=== PATIENT | female | born 1970 | race Caucasian/White ===

== ENCOUNTER 2017-01-04 18:56 | Emergency (ER) | payer BC ==
[~2017-01-04] VITALS: Ht 160 cm; Wt 96.2 kg
[2017-01-04 19:04] VITALS: BP 147/83; PULSE 88; TEMP 36.9; O2SAT 97; Ht 160 cm; Wt 96.2 kg
[2017-01-04] MEDS ORDERED: DOXY100C2 PO (19:56)
[2017-01-04] MEDS ORDERED: DOXYCYCLINE HYCLATE 100 MG CAP PO ONE (20:00)
[2017-01-04] MEDS ORDERED: LORATADINE 10 MG TAB PO ONE (20:00)
[2017-01-04] MEDS ORDERED: VERA240T20 PO (20:18)
[2017-01-04] MEDS ORDERED: SIMV10TA2 PO (20:18)
[2017-01-04] MEDS ORDERED: IBUP-1428 PO (20:18)
[2017-01-04] MEDS ORDERED: SERT25TA PO (20:18)
--- NOTE | 2017-01-05 01:11 | EMERGENCY ROOM VISIT NOTE ---
History Report prepared by Jose: Jaelyn Camara Under the Supervision of: Dr. Michael Larson M.D. First contact with patient: 19:37 Chief Complaint: RASH Stated Complaint: HIVES History of Present Illness The patient is a 46 year old female who presents to the Emergency Room with complaints of a persistent rash which started 3 days ago. The patient has red spots on her right upper thigh which are itchy and slightly painful. She is also having itchiness on her face. She went to the walk in clinic yesterday and today. She was sent to the ED because her symptoms were not improving and she had a fever today. She took her temperature at noon and found that it was 101 degrees. She took some ibuprofen at that time. She tried taking Benadryl several days ago to no significant relief. She denies any tongue swelling, SOB, body aches, joint pain, headache, chest pain, coughing, or urinary symptoms. She denies any latex glove use or chemical exposures. She notes that she has started a new job which requires her to wear a uniform. She thought that she might be reacting to the detergent that they use. She denies any history of hypertension or other medical problems. She denies any environmental allergies. She denies any tick bites. Source of History: patient Onset: 3 days ago Position: other (right upper thigh) Quality: other (rash) Timing: other (persistent) Associated Symptoms: + fevers, No headache, No cough, No chest pain, No SOB , No urinary symptoms Note: Pt report some pain and itchiness. Pt denies tongue swelling, body aches, joint pain. Review of Systems See HPI for pertinent positives & negatives. A total of 10 systems reviewed and were otherwise negative. Past Medical & Surgical Medical Problems: (1) No chronic problems Family History No pertinent family history stated. Social History Smoking Status: Never Smoker Occupation Status: employed Current/Historical Medications Scheduled Doxycycline Hyclate (Vibramycin), 100 MG PO BID Sertraline (Zoloft), 75 MG PO DAILY Simvastatin (Zocor), 10 MG PO QPM Verapamil Sust Rel (Calan Sr Ext Rel), 240 MG PO DAILY Scheduled PRN Ibuprofen (Motrin), 800 MG PO for Pain Allergies Coded Allergies: Ciprofloxacin (Unverified Allergy, Severe, HIVES/SOB, 01/04/17) Sulfa Antibiotics (Unverified Allergy, Severe, HIVES, 8/16/17) Acetaminophen (Unverified Adverse Reaction, Severe, ITCHING, 01/04/17) Hydrocodone (Unverified Adverse Reaction, Severe, ITCHING, 01/04/17) Physical Exam Vital Signs Date Time Temp Pulse Resp B/P (MAP) Pulse Ox O2 Delivery O2 Flow Rate FiO2 01/04/17 19:04 36.9 88 18 147/83 97 Room Air Physical Exam Constitutional: Vital signs reviewed. Eyes: Pupils are equal round reactive to light. Conjunctiva are noninjected. ENT: Pharynx is clear without erythema or exudate. Mucous membranes are moist. Neck supple without meningeal signs. No angioedema. Respiratory: Clear to auscultation bilaterally. Breath sounds are equal bilaterally. No wheezing or stridor. No rales. Cardiovascular: Regular rate and rhythm. No rubs or gallops. GI: Soft, nondistended and nontender. Bowel sounds are present. Musculoskeletal: No peripheral edema. No lower extremity tenderness. No hip tenderness with full ROM of the joint. Integumentary: No cyanosis. No urticaria. Erythematous patch to the right upper thigh anteriorly, slightly increased warmth, no petechiae or purpura, no vesicles or bullae, no central clearing. Neurological: The patient is awake and alert. No focal deficits. Psychiatric: Normal affect. Medical Decision & Procedures Medications Administered Medications (Trade) Dose Ordered Sig/Lindsey Route Start Time Stop Time Status Last Admin Dose Admin Doxycycline Hyclate (Vibramycin Cap) 100 mg ONE ONCE PO 01/04/17 20:00 01/04/17 20:01 DC 01/04/17 20:12 100 MG Loratadine (Claritin Tab) 10 mg NOW ONCE PO 01/04/17 20:00 01/04/17 20:01 DC 01/04/17 20:12 10 MG ED Course 1940: The patient was evaluated in room B4B. A complete history and physical exam was performed. 1999: Loratadine 10 mg PO, Doxycycline Hyclate 100 mg PO. 2009: Upon reevaluation, the patient is resting comfortably. I discussed tonight 's findings with her. She verbalized agreement of the treatment plan. She was discharged home. Medical Decision This is a 46-year-old female presents with a rash and fever. Differential diagnosis includes urticaria, cellulitis, arthritis, Lyme disease. I did perform a limited focused review of portions of the patient's old chart on the electronic medical record. The patient has had no prior visits. I did evaluate the patient as noted above. The patient is presenting with a rash for the past several days. Today she developed a fever. She was placed on prednisone yesterday by the walk-in clinic at [facility]. She says she has itching over the rash as well as over her face. She does not have any urticaria. She is afebrile here but she took ibuprofen prior to arrival. She denies any cold or cough symptoms. She has no headache. She denies any symptoms consistent with Lyme disease. Her rash is not consistent with erythema migrans. She does appear to have a early cellulitis to the right leg. It is unclear what the urticaria is from. I did treat her with loratadine and doxycycline here and she has multiple antibiotic allergies. She was advised follow closely with her doctor. She was discharged with a ten-day prescription for doxycycline. Medication Reconcilliation Current Medication List: was personally reviewed by me Blood Pressure Screening Patient's blood pressure: Elevated blood pressure Blood pressure disposition: Referred to PCP Impression Primary Impression: Fever Additional Impressions: Rash Pruritus Scribe Attestation The scribe's documentation has been prepared under my direct and personally reviewed by me in its entirety. I confirm that the note above accurately reflects all work, treatment, procedures, and medical decision making performed by me. Departure Information Dispostion Home / Self-Care Prescriptions Doxycycline Hyclate (VIBRAMYCIN) 100 Mg Cap 100 MG PO BID for 10 Days, #20 CAP Prov: Michael Larson M.D. 01/04/17 Referrals No Doctor, Assigned (PCP) Forms HOME CARE DOCUMENTATION FORM, IMPORTANT VISIT INFORMATION, WORK / SCHOOL INSTRUCTIONS Patient Instructions Fever - [facility], My [facility], Rash - [facility] Additional Instructions You have been examined and treated today on an emergency basis only. This is not a substitute for, or an effort to provide, complete comprehensive medical care. It is impossible to recognize and treat all injuries or illnesses in a single emergency department visit. It is therefore important that you follow up closely with your physician. Call as soon as possible for an appointment. Return for worsening symptoms or if you develop difficulty breathing, swelling to your tongue or lips, vomiting, or any other concerning symptoms. Problem Qualifiers Primary Impression: Fever Fever type: unspecified Qualified Codes: R50.9 - Fever, unspecified
== END 2017-01-04 20:05 | disposition home or self-care (01) ==
LOC: C.EDB 18:59
DX: R50.9 Fever, unspecified (principal); R21 Rash and other nonspecific skin eruption; L29.9 Pruritus, unspecified

== ENCOUNTER → 2017-02-11 | Outpatient (CLI) | payer OTHER ==
[~2017-02-11] MED LIST: DOXY100C2 PO; IBUP-1428 PO; SERT25TA PO; SIMV10TA2 PO; VERA240T20 PO
[2017-02-11 12:46] LABS: BASO % 0.4 %; BASO ABS # 0.02 K/uL (0-0.2); COMPLETE YES; EOS % 1.7 %; HEMATOCRIT 42.3 % (37-47); IG% 0.2 %; LYMPH % 33.3 %; LYMPH ABS # 1.56 K/uL (1.2-3.4); MEAN CELL VOLUME 87.9 fL (80-100); MEAN CORPUSCULAR HEMOGLOBIN 29.9 pg (25-34); MEAN PLATELET VOLUME 9.7 fL (7.4-10.4); MONO % 7.1 %; NEUT % 57.3 %; PLATELET COUNT 223 K/uL (130-400); RED BLOOD COUNT 4.81 M/uL (4.2-5.4); WHITE BLOOD COUNT 4.68 K/uL (4.8-10.8)
[2017-02-11 13:12] LABS: BLOOD UREA NITROGEN 13 mg/dl (7-18); BUN/CREATININE RATIO 18.2 (10-20); CALCIUM 8.9 mg/dl (8.5-10.1); CARBON DIOXIDE 23 mmol/L (21-32); CHLORIDE 112 mmol/L (98-107); CREATININE 0.72 mg/dl (0.60-1.20); GLUCOSE 92 mg/dl (70-99); POTASSIUM 3.9 mmol/L (3.5-5.1); SODIUM 143 mmol/L (136-145)
[2017-02-11 13:22] LABS: CHOLESTEROL 168 mg/dl (0-200); CHOLESTEROL/HDL RATIO 4.9; HDL CHOLESTEROL 34 mg/dl; LDL CHOLESTEROL CALCULATED 101 mg/dl; TRIGLYCERIDES 166 mg/dl (0-150); VERY LOW DENSITY LIPOPROT CALC 33 mg/dl
== END | disposition home or self-care (01) ==
LOC: C.LAB 11:19
PROVIDERS: ATTEND Family Medicine Adolescent Medicine
DX: R20.2 Paresthesia of skin (principal)

== ENCOUNTER 2017-08-23 16:55 | Emergency (ER) | payer OTHER ==
[~2017-08-23] VITALS: Ht 160 cm; Wt 96.3 kg
[~2017-08-23 16:55] MED LIST changes: -IBUP-1428 PO; -SERT25TA PO; -SIMV10TA2 PO
[2017-08-23 16:56] VITALS: Ht 160 cm; Wt 96.3 kg
--- NOTE | 2017-08-23 17:43 | DIAGNOSTIC IMAGING REPORT ---
CT SCAN OF THE BRAIN WITHOUT IV CONTRAST CLINICAL HISTORY: Head injury. Lightheadedness and dizziness. History of ventricular shunt. COMPARISON STUDY: No priors. TECHNIQUE: Unenhanced axial CT scan of the brain is performed from the vertex to the skull base. A dose lowering technique was utilized adhering to the principles of ALARA. CT DOSE: 537.48 mGy.cm FINDINGS: Brain parenchyma: A right parietal approach ventriculostomy catheter with 2 components is identified. The 2 drains terminate in the in the body of the right lateral ventricle and in a right parietal lobe sulcus. There is central and peripheral cortical atrophy. There is no hemorrhage, mass effect, or evidence of acute territorial ischemia by CT criteria. Kinsey-white matter is preserved. No extra-axial fluid collection is seen. Ventricles, sulci, cisterns: The lateral ventricles are distended, measuring up to 5 cm in transverse diameter at the level of the frontal horns. The third ventricle is only mildly distended measuring up to 8 mm in diameter. The cortical sulci and cisterns are normal in appearance. Intracranial vasculature: The visualized intracranial vasculature at the skull base is normal in appearance. Calvarium: There is a right parietal shea hole. No destructive calvarial lesion is identified. Sinuses and mastoids: The visualized paranasal sinuses are clear. The mastoid air cells are well pneumatized. Orbits: The bony orbits are grossly intact. IMPRESSION: 1. There is no hemorrhage, mass effect, or evidence of acute territorial ischemia by CT criteria. 2. Ventriculostomy catheters and enlargement of the lateral ventricles as above. Correlation with any prior outside imaging studies will be required to assess for the patient's baseline and the chronicity of these findings. Electronically signed by: Kam Hernández M.D. 08/23/2017 5:42 PM Dictated Date/Time: 08/23/2017 5:36 PM
--- NOTE | 2017-08-23 17:57 | EMERGENCY ROOM VISIT NOTE ---
ED Visit Note First contact with patient: 17:02 CHIEF COMPLAINT: Head injury HISTORY OF PRESENT ILLNESS: This 47-year-old female patient presented to the emergency department 2 days after receiving a head injury when a 5 pound ceramic bowl fell approximately 3 feet onto her head. The patient works at the [employer] in, and states she was putting utensils away. She was bending over , did not realize the ceramic ball was on the edge of the shelf. She states the ball fell, striking the left superior aspect of her head. She states she was dazed initially, and is uncertain if there was any loss of consciousness. The episode was unwitnessed, but she states she did not fall. There has been no vomiting, but the patient has experienced some nausea. The patient complains of lightheadedness, increased headaches, fatigue, insomnia, and difficulty focusing. The patient denies vomiting, balance disturbances, visual disturbances, speech disturbances, weakness, paresthesias. The headache has been worsening. The patient complains of no neck pain. The patient has taken ibuprofen without relief of the pain. The patient rates the pain as 7/10 and throbbing. She does have a history of a shunt in the right side of her brain. She has not followed up with a local neurologist regarding the chronic neurological concerns. The patient denies bowel or bladder dysfunction. The patient denies any other injuries. REVIEW OF SYSTEMS: A 10 system review of systems was performed with positives and pertinent negatives listed in the history of present illness. All other systems were reviewed and are negative. ALLERGIES: Acetaminophen, hydrocodone, ciprofloxacin, sulfa MEDICATIONS: Sertraline, Zocor, Topamax PMH: Migraines, carpal tunnel SOCIAL HISTORY: The patient is new to the area. She recently moved from [facility]. She is employed at the [employer]. She denies drug, alcohol, tobacco use. PHYSICAL EXAM: Vital Signs: Reviewed Nurse's notes, vital signs stable. GENERAL : This is a 47-year-old white female, in no acute distress, well-developed, well -nourished. NEURO: The patient is alert, oriented to person place and time, and coherent. Normal mini mental status exam. Negative Romberg and pronator drift. Cerebellar function intact. Balance slightly uncoordinated. The patient's speech is slow and slurred, however she states this is normal. HEAD: Normocephalic, atraumatic. There is some tenderness on the left superior aspect of the head on palpation. EYES: Pupils are equal round and reactive to light and accommodation. EOMs are full and optic discs and fundi are normal. There is no swelling or discoloration of the tissue surrounding the eyes. EARS : External auditory canals clear without blood. NOSE: Patent without tenderness. No septal hematoma. FACE: No facial bone tenderness. NECK: Supple. There is no cervical spine tenderness. The patient does not have tenderness with movement of the neck. RADIOLOGY: CT SCAN OF THE BRAIN WITHOUT IV CONTRAST CLINICAL HISTORY: Head injury. Lightheadedness and dizziness. History of ventricular shunt. COMPARISON STUDY: No priors. TECHNIQUE: Unenhanced axial CT scan of the brain is performed from the vertex to the skull base. A dose lowering technique was utilized adhering to the principles of ALARA. CT DOSE: 537.48 mGy.cm FINDINGS: Brain parenchyma: A right parietal approach ventriculostomy catheter with 2 components is identified. The 2 drains terminate in the in the body of the right lateral ventricle and in a right parietal lobe sulcus. There is central and peripheral cortical atrophy. There is no hemorrhage, mass effect, or evidence of acute territorial ischemia by CT criteria. Kinsey-white matter is preserved. No extra-axial fluid collection is seen. Ventricles, sulci, cisterns: The lateral ventricles are distended, measuring up to 5 cm in transverse diameter at the level of the frontal horns. The third ventricle is only mildly distended measuring up to 8 mm in diameter. The cortical sulci and cisterns are normal in appearance. Intracranial vasculature: The visualized intracranial vasculature at the skull base is normal in appearance. Calvarium: There is a right parietal shea hole. No destructive calvarial lesion is identified. Sinuses and mastoids: The visualized paranasal sinuses are clear. The mastoid air cells are well pneumatized. Orbits: The bony orbits are grossly intact. IMPRESSION: 1. There is no hemorrhage, mass effect, or evidence of acute territorial ischemia by CT criteria. 2. Ventriculostomy catheters and enlargement of the lateral ventricles as above. Correlation with any prior outside imaging studies will be required to assess for the patient's baseline and the chronicity of these findings. Electronically signed by: Kam Hernández M.D. 08/23/2017 5:42 PM Dictated Date/Time: 08/23/2017 5:36 PM ED COURSE: I examined the patient. Given the history of transient and recent head injury with questionable loss of consciousness, CT scan was performed. The patient was agreeable to having this test performed at this time. CT scan was reviewed by myself and radiologist with no obvious acute findings noted. I did discuss the ventricular enlargement with the patient at bedside, and encouraged her to follow-up outpatient with a local neurologist. The patient was agreeable. She was encouraged to follow-up with her primary care provider in the meanwhile to discuss her symptoms. Discharge instructions reviewed. The patient was discharged home in good condition ambulatory. I attest that I have personally reviewed the patient's current medication list. Blood Pressure Screening: Patient was found to have a slightly elevated blood pressure due to circumstances. I do not believe that the patient requires hypertension monitoring. Etiologies such as closed head injury, concussion, migraine, tumor, headache, sinus thrombosis, temporal arteritis, sinusitis, CVA, ICH, SAH, infection, as well as others were entertained. DIAGNOSIS: Closed head injury The chart was completed utilizing [employer] Speech voice recognition software. Grammatical errors, random word insertions, pronoun errors, and incomplete sentences are an occasional consequence of this system due to software limitations, ambient noise, and hardware issues. Any formal questions or concerns about the content, text, or information contained within the body of this dictation should be directly addressed to the provider for clarification. Current/Historical Medications Scheduled Sertraline (Zoloft), 75 MG PO DAILY Simvastatin (Zocor), 10 MG PO QPM Topiramate (Topamax), 100 MG PO DAILY Scheduled PRN Ibuprofen (Motrin), 800 MG PO for Pain Allergies Coded Allergies: Ciprofloxacin (Unverified Allergy, Severe, HIVES/SOB, 01/04/17) Sulfa Antibiotics (Unverified Allergy, Severe, HIVES, 01/04/17) Acetaminophen (Unverified Adverse Reaction, Severe, ITCHING, 01/04/17) Hydrocodone (Unverified Adverse Reaction, Severe, ITCHING, 01/04/17) Vital Signs Date Time Temp Pulse Resp B/P (MAP) Pulse Ox O2 Delivery O2 Flow Rate FiO2 08/23/17 18:03 37.1 95 17 132/95 96 08/23/17 18:03 95 17 132/95 96 Room Air 08/23/17 17:00 96 08/23/17 16:56 37.1 99 17 135/97 96 Room Air Departure Information Impression Primary Impression: Closed head injury Dispostion Home / Self-Care Condition GOOD Referrals Leda Pineda M.D. (PCP) Leilani Nash M.D. Patient Instructions ED Head Injury Closed, My [facility] Additional Instructions You have been treated in the Emergency Department for a Closed Head Injury. CT Scan of your head/brain demonstrated no acute bleeding or other acute abnormalities. As discussed, there was some enlargement of the ventricles of the brain. This is likely chronic due to the shunt, however I do recommend follow-up with neurology. This does not completely rule out the risk for future damage to the brain. For pain control, you can use the following [id number] medicines (if >12 yo): Ibuprofen(Motrin, Advil) may be used for fever or pain. Use 600mg every six hours as needed. Take with food. Avoid using more than 2400mg in a 24 hour period. Do not use 2400mg per day for more than three consecutive days without physician direction. Prolonged inappropriate use can lead to stomach upset or ulcers. (AND/OR) Acetaminophen(Tylenol) may be used for fever or pain. Use 1000mg every six hours as needed. Avoid using more than 3000mg in a 24 hour period. *Please only take these medications as directed by your PCP. You should relax in a quiet, dark place for the rest of the day. Avoid any possible triggers including: cigarette smoke, caffeine, nicotine, chocolate, wine, beer, loud noises or music, or bright lights. You should schedule a follow-up appointment in 2-3 days with your Primary Care Provider or established Neurologist for further evaluation and treatment of your Headache. Return to the Emergency Department if your current symptoms worsen despite treatment course outlined above, or if you develop any of the following symptoms : intractable pain despite aforementioned treatment course, visual disturbances , loss of vision, unilateral weakness or facial drooping, slurring of speech, loss of coordination, or loss of consciousness. Problem Qualifiers Primary Impression: Closed head injury Encounter type: initial encounter Qualified Codes: S09.90XA - Unspecified injury of head, initial encounter
[2017-08-23 18:03] VITALS: BP 132/95; PULSE 95; TEMP 37.1; O2SAT 96
[2017-08-23] MEDS ORDERED: TOPI100T20 PO (18:06)
[2017-08-23] MEDS ORDERED: SIMV10TA2 PO (20:18)
[2017-08-23] MEDS ORDERED: SERT25TA PO (20:18)
[2017-08-23] MEDS ORDERED: IBUP-1428 PO (20:18)
== END 2017-08-23 18:04 | disposition home or self-care (01) ==
LOC: C.EDB 16:56 → C.EDD 18:04
DX: S09.90XA Unspecified injury of head, initial encounter (principal); W22.8XXA Striking against or struck by other objects, initial encounter; Y93.89 Activity, other specified; Y99.0 Civilian activity done for income or pay; Y92.59 Other trade areas as the place of occurrence of the external cause; Z88.1 Allergy status to other antibiotic agents; Z88.2 Allergy status to sulfonamides; Z88.6 Allergy status to analgesic agent

== ENCOUNTER → 2017-12-28 | Outpatient (CLI) | payer OTHER ==
[~2017-12-28] MED LIST changes: -DOXY100C2 PO; +IBUP-1428 PO; +SERT25TA PO; +SIMV10TA2 PO; +TOPI100T20 PO; -VERA240T20 PO
--- NOTE | 2018-01-09 07:00 | MAMMOGRAPHY REPORT ---
BILATERAL DIGITAL SCREENING MAMMOGRAM TOMOSYNTHESIS WITH CAD: 12/28/2017 CLINICAL HISTORY: Routine screening. Patient has no complaints. TECHNIQUE: The study was acquired using full field digital technology and interpreted from soft copy. Breast tomosynthesis in addition to standard 2D mammography was performed. Current study was also ev aluated with a Computer Aided Detection (CAD) system. COMPARISON: Comparison is made to exams dated: 09/17/2015 mammogram and 09/19/2016 mammogram - [facility] [place] [facility], [facility]. BREAST COMPOSITION: The tissue of both breasts is heterogeneously dense, which may obscure small mass es. FINDINGS: Partially calcified catheter tubing projects over the posterior right breast, stable compar ing to prior mammograms. There are a few stable groupings of benign-appearing punctate calcification s bilaterally. Asymmetry of the size of the breasts, left greater than right, unchanged as well, lik joshua normal anatomic variation. No new suspicious mass, architectural distortion or cluster of microca lcifications is seen. IMPRESSION: ACR BI-RADS CATEGORY 1: NEGATIVE There is no mammographic evidence of malignancy. A 1 year screening mammogram is recommended.( 019) The patient will receive written notification of the results. Some breast cancers are not detected with mammography. A negative mammographic report should not maritza y biopsy if a clinically suggestive mass is present. Ramona Mario M.D. ay/:01/08/2018 16:26:38 [employer] Operator: RT Stacey(Marium)(M), [facility] letter sent: Normal 1/2 BI-RADS Code: ACR BI-RADS Category 1: Negative
== END | disposition home or self-care (01) ==
LOC: C.MAMM 11:19
PROVIDERS: ATTEND Family Medicine
DX: Z12.31 Encounter for screening mammogram for malignant neoplasm of breast (principal)